=== PATIENT | female | born 1970 | race American Indian/Alaskan Native ===

== ENCOUNTER 2020-10-10 19:36 | Emergency (ER) | payer SELFPAY ==
[2020-10-10] MEDS ORDERED: ASPIRIN 325 MG TAB PO ONE (21:30)
[2020-10-10] MEDS ORDERED: hydrALAZINE 20 MG/1 ML INJ IV ONE (21:30)
[2020-10-10 21:40] LABS: Basophils % (Auto) 0.7 % (0.0-1.8); Eosinophils # (Auto) 0.3 K/mm3 (0.0-0.4); Eosinophils % (Auto) 4.3 % (0.0-4.3); Hemoglobin 15.1 gm/dl (10.1-14.3); Lymphocytes # (Auto) 2.4 K/mm3 (1.2-5.4); Lymphocytes % (Auto) 37.3 % (13.4-35.0); Mean Corpuscular HGB Conc 34 % (30-34); Mean Corpuscular Volume 87 fl (79-97); Monocytes # (Auto) 0.6 K/mm3 (0.0-0.8); Monocytes % (Auto) 9.8 % (0.0-7.3); Platelet Count 199 K/mm3 (140-440); Red Blood Count 5.16 M/mm3 (3.65-5.03); Red Cell Distribution Width 14.4 % (13.2-15.2)
[2020-10-10 21:58] LABS: Alanine Aminotransferase 58 units/L (7-56); Albumin 4.2 g/dL (3.9-5); Blood Urea Nitrogen 12 mg/dL (7-17); Calcium 9.1 mg/dL (8.4-10.2); Hemolysis Index 5
[2020-10-10 21:59] LABS: BUN/Creatinine Ratio 17
[2020-10-10] MEDS ORDERED: ONDANSETRON 4 MG/2 ML INJ ONE (22:27)
--- NOTE | 2020-10-10 22:35 | XRay Report ---
CHEST 2 VIEWS INDICATION / CLINICAL INFORMATION: headache, elevated BP. COMPARISON: None available. FINDINGS: SUPPORT DEVICES: None. HEART / MEDIASTINUM: No significant abnormality. LUNGS / PLEURA: No significant pulmonary or pleural abnormality. No pneumothorax. ADDITIONAL FINDINGS: No significant additional findings. IMPRESSION: 1. No acute findings. Signer Name: Cruz Braswell MD Signed: 10/10/2020 10:31 PM Workstation Name: [id number]
[2020-10-10] MEDS ORDERED: amLODIPine 5 MG TAB PO ONE (23:49)
[2020-10-10] MEDS ORDERED: ALPRAZolam 0.5 MG TAB PO ONE (23:50)
--- NOTE | 2020-10-11 02:01 | Emergency Department Report ---
ED General Adult HPI - General Chief complaint: High BP Stated complaint: LIGHT HEADED Source: patient Mode of arrival: Ambulatory Limitations: No Limitations - History of Present Illness Initial comments: Patient is a 50-year-old -Tog[place] female with a history of chronic heavy tobacco and marijuana abuse who presents to the ED with persistently elevated blood pressure for the last 2 days. Patient states that she had gone to a plasma donation center 2 days ago and when her vital signs were checked it showed significantly elevated blood pressure in the 200s systolic and 120s diastolic. Patient states that she was then advised to come to the ED for evaluation. Patient denies any headache, dizziness, syncope, chest pain, shortness of breath, nausea and vomiting, change in vision, seizures, facial numbness and tingling or weakness, change in speech, upper and lower extremity numbness and tingling or weakness, diaphoresis, fever and chills or cough and abdominal pain or back pain and neck pain. MD Complaint: Uncontrolled blood pressure -: Sudden, days(s) (2) Radiation: non-radiation Severity scale (0 -10): 0 Quality: dull Consistency: constant Improves with: none Worsens with: none Associated Symptoms: denies other symptoms. denies: confusion, chest pain, cough, diaphoresis, fever/chills, headaches, loss of appetite, malaise, nausea/vomiting, rash, seizure, shortness of breath, syncope, weakness, other Treatments Prior to Arrival: none - Related Data Previous Rx's Medication Instructions Recorded Last Taken Type amLODIPine 10 mg PO DAILY #30 tab 10/11/20 Unknown Rx hydroCHLOROthiazide [HCTZ] 25 mg PO QDAY #30 tablet 10/11/20 Unknown Rx Allergies Allergy/AdvReac Type Severity Reaction Status Date / Time No Known Allergies Allergy Unverified 10/10/20 20:30 ED Review of Systems ROS: Stated complaint: LIGHT HEADED Other details as noted in HPI Constitutional: other (Elevated blood pressure). denies: chills, fever Eyes: denies: eye pain, eye discharge, vision change ENT: denies: ear pain, throat pain Respiratory: denies: cough, shortness of breath, wheezing Cardiovascular: denies: chest pain, palpitations Endocrine: no symptoms reported Gastrointestinal: denies: abdominal pain, nausea, diarrhea Genitourinary: denies: urgency, dysuria, discharge Musculoskeletal: denies: back pain, joint swelling, arthralgia Skin: denies: rash, lesions Neurological: denies: headache, weakness, paresthesias Psychiatric: denies: anxiety, depression Hematological/Lymphatic: denies: easy bleeding, easy bruising ED Past Medical Hx - Past Medical History Previous Medical History?: No - Surgical History Past Surgical History?: No - Social History Smoking Status: Current Every Day Smoker Substance Use Type: Alcohol, Marijuana - Medications Home Medications: Home Medications Medication Instructions Recorded Confirmed Last Taken Type amLODIPine 10 mg PO DAILY #30 tab 10/11/20 Unknown Rx hydroCHLOROthiazide [HCTZ] 25 mg PO QDAY #30 tablet 10/11/20 Unknown Rx ED Physical Exam - General Limitations: No Limitations General appearance: alert, in no apparent distress, anxious - Head Head exam: Present: atraumatic, normocephalic, normal inspection - Eye Eye exam: Present: normal appearance, PERRL, EOMI. Absent: scleral icterus, conjunctival injection, periorbital swelling, periorbital tenderness, other - ENT ENT exam: Present: normal exam, normal orophraynx, mucous membranes moist, TM's normal bilaterally, normal external ear exam - Neck Neck exam: Present: normal inspection, full ROM - Respiratory Respiratory exam: Present: normal lung sounds bilaterally. Absent: respiratory distress, wheezes, rales, rhonchi, stridor, chest wall tenderness, accessory muscle use, decreased breath sounds, other - Cardiovascular Cardiovascular Exam: Present: regular rate, normal rhythm, normal heart sounds. Absent: systolic murmur, diastolic murmur, rubs, gallop - GI/Abdominal GI/Abdominal exam: Present: soft, normal bowel sounds. Absent: tenderness, guarding, hyperactive bowel sounds, hypoactive bowel sounds, organomegaly - Extremities Exam Extremities exam: Present: normal inspection, full ROM, normal capillary refill - Back Exam Back exam: Present: normal inspection, full ROM. Absent: tenderness, CVA tenderness (R), CVA tenderness (L), muscle spasm, paraspinal tenderness, vertebral tenderness - Neurological Exam Neurological exam: Present: alert, oriented X3, CN II-XII intact, normal gait, reflexes normal - Psychiatric Psychiatric exam: Present: normal affect, normal mood, anxious - Skin Skin exam: Present: warm, dry, intact, normal color. Absent: rash ED Course Vital Signs 10/10/20 10/10/20 10/11/20 20:30 21:57 00:39 Temperature 98.2 F Pulse Rate 87 68 95 H Respiratory 18 Rate Blood Pressure 229/135 210/119 181/103 O2 Sat by Pulse 100 Oximetry ED Medical Decision Making - Lab Data Result diagrams: 10/10/20 21:20 10/10/20 21:20 - EKG Data EKG shows normal: sinus rhythm Rate: normal - EKG Data Interpretation: normal EKG 10/11/20 02:06 EKG shows normal sinus rhythm with a ventricular rate of [address] or T wave abnormalities. - Radiology Data Radiology results: report reviewed, image reviewed [facility] [address] [place] [address] XRay Report Signed Patient: GAURAV BROWN MR#: [id number] 52 : 1970 Acct:[id number] Age/Sex: 50 / F ADM Date: 10/10/20 Loc: ED Attending Dr: Ordering Physician: CRISTIAN CURRAN Date of Service: 10/10/20 Procedure(s): XR chest routine 2V Accession Number(s): [id number] cc: CRISTIAN CURRAN Fluoro Time In Minutes: CHEST 2 VIEWS INDICATION / CLINICAL INFORMATION: headache, elevated BP. COMPARISON: None available. FINDINGS: SUPPORT DEVICES: None. HEART / MEDIASTINUM: No significant abnormality. LUNGS / PLEURA: No significant pulmonary or pleural abnormality. No pneumothorax. ADDITIONAL FINDINGS: No significant additional findings. IMPRESSION: 1. No acute findings. Signer Name: Zhang Sanchez MD Signed: 10/10/2020 10:31 PM Workstation Name: [id number] Transcribed By: Dictated By: ZHANG SANCHEZ Electronically Authenticated By: ZHANG SANCHEZ Signed Date/Time: 10/10/202230 DD/ 29 TD/TT: - Medical Decision Making This is a 50-year-old -[place]og[place] female with a history of chronic heavy tobacco and marijuana abuse who presents to the ED with persistently elevated blood pressure for the last 2 days. Patient states that she had gone to a plasma donation center 2 days ago and when her vital signs were checked it showed significantly elevated blood pressure in the 200s systolic and 120s diastolic. Patient states that she was then advised to come to the ED for evaluation. In the ED, patient is alert and oriented x3 and is not in distress but hypertensive in triage and anxious. EKG shows normal sinus rhythm with a ventricular rate of [address] or T wave abnormalities. Chest x-ray shows no acute cardiopulmonary abnormalities or pneumonitis. Patient was treated in the ED with antihypertensive medications. On reevaluation, patient blood pressure improved significantly and although it was still high it is emphasized that the patient's blood pressures been high and dropping it too low may be dangerous for the patient. All lab test results were reviewed and are all nonactionable including initial and 3-hour repeat troponin levels. On reevaluation, patient felt better and was discharged home on blood pressure medications and advised to follow-up with her primary care physician in 3 to 5 days for reevaluation or return to the ED immediately if symptoms get worse. - Differential Diagnosis Uncontrolled hypertension; anxiety; ACS; pneumonia; Critical care attestation.: If time is entered above; I have spent that time in minutes in the direct care of this critically ill patient, excluding procedure time. ED Disposition Clinical Impression: Uncontrolled stage 2 hypertension, Anxiety as acute reaction to exceptional stress Disposition: DC-01 TO HOME OR SELFCARE Is pt being admited?: No Does the pt Need Aspirin: No Condition: Stable Instructions: Hypertension (ED), Hypertension, Adult, [id number] Additional Instructions: All lab test results were reviewed and are all nonactionable. EKG shows normal sinus rhythm with a ventricular rate of [address] or T wave abnormalities. Chest x-ray showed no acute cardiopulmonary abnormalities or pneumonitis. Therefore take medications as advised daily, follow-up with your primary care physician in 3 to 5 days for reevaluation. Return to the ED immediately if symptoms get worse. Prescriptions: amLODIPine 10 mg PO DAILY #30 tab hydroCHLOROthiazide [HCTZ] 25 mg PO QDAY #30 tablet Referrals: [facility] [Provider Group] - 3-5 Days Time of Disposition: 02:03 Print Language: SAMI
[2020-10-11 03:03] VITALS: BP 190/108
--- NOTE | 2020-10-11 13:38 | Electrocardiograph Report ---
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
--- NOTE | 2020-10-11 13:38 | Electrocardiograph Report ---
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
== END 2020-10-11 02:40 | disposition home or self-care (01) ==
LOC: ED 19:36
DX: F41.1 Generalized anxiety disorder (principal); F43.0 Acute stress reaction; I10 Essential (primary) hypertension; F17.200 Nicotine dependence, unspecified, uncomplicated; F12.90 Cannabis use, unspecified, uncomplicated; Z79.899 Other long term (current) drug therapy
CPT/HCPCS: 36415; 71046; 80053; 83880; 84484; 85025; 93005; 96374; 99284; J0360; J2405